=== PATIENT | male | born 1980 | race Two or more races ===

== ENCOUNTER 2019-05-17 23:47 | Emergency (ER) | payer SELFPAY ==
[~2019-05-17] VITALS: Ht 172.7 cm; Wt 103.4 kg
[2019-05-18 00:22] VITALS: BP 115/76
== END 2019-05-18 02:14 | disposition left against medical advice (07) ==
LOC: ER 23:50
DX: L02.01 Cutaneous abscess of face (principal); Z53.21 Procedure and treatment not carried out due to patient leaving prior to being seen by health care provider